=== PATIENT | male | born 1995 | race Caucasian/White ===

== ENCOUNTER → 2016-10-03 | Outpatient (CLI) | payer BC ==
[~2016-10-03] MED LIST: IBUPROFEN800 MG PO; NO MEDICATIONS
--- NOTE | ~2016-10-03 | US115 ---
[facility] A Service of [facility] & [facility] RADIOLOGY TEXT RESULTS PATIENT: GOOD SÁNCHEZ LOCATION: [facility] : [birth year] UNIT #: [id number] AGE: [address]: Alysha Shields SEX: M ORDER DR: [id number] [address] [id number] O MR#: [id number] Acc #: [id number] NAME: GOOD SÁNCHEZ : 1995 SEX: M STUDY DATE/TIME: 10/03/2016 14:05 UNIT: SG ROOM: STUDY DESCRIPTION: US Scrotum and Contents Attending Physician: Alysha Shields A.P.R.N. Referring Physician: Alysha Sheilds A.P.R.N. Ordering Physician: Alysha Shields A.P.R.N. Primary Care Physician: Alysha Shields A.P.R.N. MEDICAL IMAGING REPORT This report is preliminary unless electronic signature is present. EXAM Testicular ultrasound with color flow Doppler, 10/03/2016. HISTORY Bilateral testicular pain and inflammation for 2 weeks. Palpable knot on right testicle for 2 weeks as per patient. FINDINGS Flowers-scale images of the scrotum were obtained as well as Doppler waveform spectral analysis and color flow Doppler imaging. The right testicle measured 2.1 cm x 3.7 cm x 3.9 cm, while the left testicle measured 2.1 cm x 2.9 cm x 4.2 cm. Both testes are homogeneous in echotexture and demonstrate no cystic or solid mass lesions. Color-flow Doppler images show normal blood flow to both testes. There is a 1.3 cm cyst or spermatocele within the right epididymis. The left epididymis is normal. IMPRESSION 1. The testes are normal bilaterally. No testicular mass is seen. Color-flow Doppler images showed normal blood flow to both testes. 2. 1.3 cm cyst or spermatocele on the right epididymis. Dictated by... González Burkett M.D. THIS IS AN ELECTRONICALLY VERIFIED REPORT González Burkett M.D. at 10/04/2016 2:16 PM KRT/akash TD: 10/04/2016 02:05 JOB #: [id number] [facility] [place] of [facility] & [facility] RADIOLOGY TEXT RESULTS PATIENT: GOOD SÁNCHEZ LOCATION: [facility] : [birth year] UNIT #: [id number] AGE: [address]: Alysha Shields SEX: M ORDER DR: MEDICAL IMAGING REPORT Page 1 of 1
== END | disposition home or self-care (01) ==
LOC: SGUS 09-24 09:00
DX: N44.8 Other noninflammatory disorders of the testis (principal)
CPT/HCPCS: 76870